=== PATIENT | female | born 1995 | race Caucasian/White ===

== ENCOUNTER 2016-12-13 12:57 | Outpatient (CLI) | payer MEDICAID ==
[~2016-12-13] VITALS: Ht 167.6 cm; Wt 100.0 kg
[~2016-12-13 12:57] MED LIST: NITR100C56 PO; PNV11TAB5 PO
[2016-12-13 13:27] VITALS: BP 139/77
[2016-12-15] MEDS ORDERED: IBUP-1222 PO (10:51)
== END 2016-12-13 14:20 | disposition home or self-care (01) ==
LOC: LDOP 12:57
PROVIDERS: ATTEND Obstetrics & Gynecology Maternal & Fetal Medicine
DX: O26.893 Other specified pregnancy related conditions, third trimester (principal); R10.9 Unspecified abdominal pain; O62.9 Abnormality of forces of labor, unspecified; Z3A.39 39 weeks gestation of pregnancy
CPT/HCPCS: 59025; 99211; G0463

== ENCOUNTER 2017-05-22 14:07 | Emergency (ER) | payer MEDICAID ==
[~2017-05-22] VITALS: Ht 167.6 cm; Wt 82.0 kg
[~2017-05-22 14:07] MED LIST changes: +IBUP-1222 PO
[2017-05-22 15:34] LABS: HEMATOCRIT 35.9 % (34.6-47.8); HEMOGLOBIN 12.1 g/dL (11.7-16.4); WHITE BLOOD COUNT 20.5 x10^3/uL (3.4-10)
[2017-05-22 16:04] LABS: DIFF TOTAL CELLS COUNTED 100 CELL DIFF
[2017-05-22 16:11] LABS: VERIFY COUNTS? YES
[2017-05-22 18:16] VITALS: BP 117/78
== END 2017-05-22 18:53 | disposition home or self-care (01) ==
LOC: ED 14:38
DX: O20.9 Hemorrhage in early pregnancy, unspecified (principal); Z3A.01 Less than 8 weeks gestation of pregnancy
CPT/HCPCS: 36415; 76801; 81001; 84702; 85025; 87086; 99285

== ENCOUNTER 2018-06-09 17:07 | Outpatient (CLI) | payer MEDICAID ==
[~2018-06-09] VITALS: Ht 167.6 cm; Wt 90.0 kg
[2018-06-09 17:51] VITALS: BP 107/60
[2018-06-09 17:51] LABS: MICROSCOPIC INDICATED
== END 2018-06-09 18:50 | disposition home or self-care (01) ==
LOC: LDOP 17:07
PROVIDERS: ATTEND Obstetrics & Gynecology Maternal & Fetal Medicine
DX: O26.893 Other specified pregnancy related conditions, third trimester (principal); R10.9 Unspecified abdominal pain; M54.9 Dorsalgia, unspecified; Z3A.28 28 weeks gestation of pregnancy
CPT/HCPCS: 59025; 76815; 81001; 87086; 99211; G0463